=== PATIENT | female | born 1945 | race Caucasian/White ===

== ENCOUNTER 2016-11-23 18:25 | Emergency (ER) | payer MEDICARE, OTHER ==
[~2016-11-23] VITALS: Ht 167.6 cm; Wt 69.0 kg
--- NOTE | 2016-11-23 18:29 | PD ---
HPI Chief Complaint: Fall/Arm Pain Time Seen by Provider: 18:28 Travel History International Travel<30 days: No Contact w/Intl Traveler<30days: No Traveled to known affect area: No History of Present Illness HPI 70-year-old female brought in with her status post fall and a local hotel. Patient is here visiting from [place]. Patient was going to get some ice in the ice bucket when she tripped and fell landing on her left elbow. She is now complaining of pain in the left shoulder and upper arm on the left. Patient describes it as an 8/10 pain with movement. If she is holding it is a 5 out of 10. She denies hitting her head or neck pain. She denies loss of consciousness. She denies injury to any other body part. She is able to move her left elbow without difficulty she has good gopherman strength in the left hand. She is neurovascularly intact in the left hand. She has no significant medical problems she is a nonsmoker. Patient last drank a green smoothie approximately one hour prior to arrival. She has no known drug allergies. [facility] Social History Alcohol Use: No Tobacco Use: No Substance Use: No Allergies-Medications (Allergen,Severity, Reaction): Coded Allergies: No Known Allergies (Unverified , 11/23/16) Reported Meds & Prescriptions Reported Meds & Active Scripts Active No Active Prescriptions or Reported Medications Review of Systems Except as stated in HPI: all other systems reviewed are Neg General / Constitutional: No: Fever Eyes: No: Visual changes HENT: No: Headaches Cardiovascular: No: Chest Pain or Discomfort Respiratory: No: Shortness of Breath Gastrointestinal: No: Abdominal Pain Genitourinary: No: Dysuria Musculoskeletal: No: Pain Skin: No Rash Neurologic: No: Weakness Psychiatric: No: Depression Endocrine: No: Polydipsia Hematologic/Lymphatic: No: Easy Bruising Physical Exam Narrative GENERAL: Patient appears in moderate distress. SKIN: Warm and dry. Normal color. Normal turgor. No obvious abrasions, wounds , or ecchymosis. HEAD: Atraumatic. Normocephalic. EYES: Pupils equal and round. No scleral icterus. No injection or drainage. ENT: No nasal bleeding or discharge. Mucous membranes pink and moist. No dental injury. Pharynx is clear. Airway is patent. NECK: Trachea midline. No bony tenderness or step-off. Range of motion is full and supple. CARDIOVASCULAR: Regular rate and rhythm. No murmurs gallops or rubs. RESPIRATORY: No accessory muscle use. Clear to auscultation. Breath sounds equal bilaterally. GASTROINTESTINAL: Abdomen soft, non-tender, nondistended. Hepatic and splenic margins not palpable. MUSCULOSKELETAL: Extremities without clubbing, cyanosis, or edema. No obvious deformities. Patient has swelling in the left shoulder below the deltoid, with noted muscle spasm, and pain with palpation as well as any type of movement. Pain is localized to the proximal humerus. Left elbow is unremarkable. Patient has good gopherman strength in the left hand. Patient has normal neurovascular exam of the left hand and forearm. NEUROLOGICAL: Awake and alert. No obvious cranial nerve deficits. Motor grossly within normal limits. Normal speech. PSYCHIATRIC: Appropriate mood and affect; insight and judgment normal. Data Data Last Documented VS Vital Signs Date Time Temp Pulse Resp B/P Pulse Ox O2 Delivery O2 Flow Rate FiO2 11/23/16 19:47 16 97 Room Air 11/23/16 19:04 98.3 74 182/84 Orders Iv Access Insert/Monitor (11/23/16 18:42) Ecg Monitoring (11/23/16 18:42) Oximetry (11/23/16 18:42) NPO (11/23/16 18:42) Sodium Chloride 0.9% Flush (Ns Flush) (11/23/16 18:45) Electrocardiogram (11/23/16 18:42) Ice/Cold Pack (11/23/16 18:42) Humerus, One View (11/23/16 18:42) Shoulder, Limited(2vws) (11/23/16 ) Sling And Swathe (11/23/16 ) Radiology Film Requests (11/23/16 ) Acetamin-Hydrocod 325-5 Mg ([place] 5-325 (11/23/16 21:00) Iv Access - Remove (11/23/16 20:56) MDM Medical Decision Making Medical Screen Exam Complete: Yes Emergency Medical Condition: Yes Differential Diagnosis Fall. Shoulder pain. Fracture. Narrative Course Patient is medically stable at time of exam. IV access is obtained. This time patient refuses pain medication. Patient is made nothing by mouth. X-rays ordered of the left shoulder and humerus. X-ray shows comminuted fracture of the proximal humerus. 2030 hrs. call was placed to Dr. Le orthopedic on-call. 2039 hrs. call was returned by Dr. Le, and patient was discussed. Dr. Le does not feel the patient requires surgical repair. Patient is placed in a sling and swath. Patient is given 1 Lortab 5/325 by mouth. Patient will be discharged home with follow-up with orthopedic when she returns to [place]. Patient is given Lortab 5/325 one to 2 tablets every 6 hours #20. Patient is use ice frequently. Patient is to wear the sling and swath at all times until seen in follow-up in [place]. Patient may return to the emergency Department with any worsening symptoms as needed. Diagnosis Primary Impression: Closed fracture of left proximal humerus Qualified Code: S42.202A - Closed fracture of proximal end of left humerus, unspecified fracture morphology, initial encounter Referrals: Orthopedist Patient Instructions: General Instructions, How to Use a Sling (GEN), Proximal Humerus Fracture (ED) Additional Instructions: Patient is placed in a sling and swath. Patient is given 1 Lortab 5/325 by mouth. Patient will be discharged home with follow-up with orthopedic when she returns to [place]. Patient is given Lortab 5/325 one to 2 tablets every 6 hours #20. Patient is use ice frequently. Patient is to wear the sling and swath at all times until seen in follow-up in [place]. Patient may return to the emergency Department with any worsening symptoms as needed. Med/Other Pt SpecificInfo: Prescription(s) given Scripts No Active Prescriptions or Reported Meds Disposition: 01 DISCHARGE HOME Condition: Stable Gentry Tomas Nov 23, 2016 18:29
[2016-11-23] MEDS ORDERED: SODIUM CHLORIDE 0.9% FLUSH 5 ML FLUSH IVF PRN (18:45)
[2016-11-23 19:04] VITALS: BP 182/84; PULSE 74; RESP 16; TEMP 98.3; O2SAT 97
[2016-11-23 19:47] VITALS: RESP 16; O2SAT 97
--- NOTE | 2016-11-23 20:35 | PD ---
Physical Exam Narrative General: The patient is a well-developed well-nourished female in no acute distress. Head and Neck exam: Head is normocephalic atraumatic. Neck: No spinous process tenderness to palpation, no step-off, no crepitus, no erythema or ecchymosis. No palpable lymphadenopathy. No nuchal rigidity. Cardiovascular: Regular rate and rhythm without murmurs, gallops, or rubs. Lungs: Clear to auscultation bilaterally. No wheezes, rhonchi, or rales. Abdomen: Soft, without tenderness to palpation in all 4 quadrants of the abdomen. No guarding, rebound, or rigidity. Normal bowel sounds are audible Extremities: No clubbing, cyanosis, or edema. 2+ pulses in all 4 extremities. The area of interest is the left upper extremity. The patient has tenderness on palpation of the left proximal humerus. The patient has crepitus on palpation. The patient has swelling developing. The patient has no tenderness on palpation of the left elbow, left wrist, or left hand. The patient has intact sensation over all fingertips. The patient has full range of motion of the left elbow and left wrist with 5 over 5 strength. Neurologic Exam: Grossly nonfocal. Skin Exam: No rash noted. Intact skin that is warm and dry. Data Data Last Documented VS Vital Signs Date Time Temp Pulse Resp B/P Pulse Ox O2 Delivery O2 Flow Rate FiO2 11/23/16 19:47 16 97 Room Air 11/23/16 19:04 98.3 74 182/84 Orders Iv Access Insert/Monitor (11/23/16 18:42) Ecg Monitoring (11/23/16 18:42) Oximetry (11/23/16 18:42) NPO (11/23/16 18:42) Sodium Chloride 0.9% Flush (Ns Flush) (11/23/16 18:45) Electrocardiogram (11/23/16 18:42) Ice/Cold Pack (11/23/16 18:42) Humerus, One View (11/23/16 18:42) Shoulder, Limited(2vws) (11/23/16 ) Sling And Swathe (11/23/16 ) Radiology Film Requests (11/23/16 ) Acetamin-Hydrocod 325-5 Mg ([place] 5-325 (11/23/16 21:00) Iv Access - Remove (11/23/16 20:56) Sling Cradle Arm (11/23/16 ) MDM Medical Record Reviewed: Yes Supervised Visit with MARI: Yes Interpretation(s) Last Impressions Humerus X-Ray 11/23/16 1842 Signed Impressions: Service Date/Time: Wednesday, November 23, 2016 19:52 - CONCLUSION: 1. Comminuted proximal left humerus fracture. Miles Sheriff MD Shoulder X-Ray 11/23/16 0000 Signed Impressions: Service Date/Time: Wednesday, November 23, 2016 19:49 - CONCLUSION: 1. Comminuted mildly displaced fractures of the proximal left humerus Miles Sheriff MD Narrative Course I, Dr. Roca, have reviewed the advance practice practitioner's documentation and am in agreement, met with the patient face to face, made the diagnosis, and the medical decision making was done by me. The patient was initially seen by Gentry, the physician statistical assistant. Please see his complete history and physical. *My assessment and Findings: The patient is a 70-year-old female who presents to [facility] emergency Department with a history of mechanical fall prior to arrival where she landed on her left arm. She reports that she tripped over carpet and fell onto her left arm. She initially reported having left elbow and left shoulder pain. Her exam was remarkable for pain and crepitus of the left proximal humerus. A shoulder and humerus xray was ordered. The xray revealed a comminuted and displaced proximal humerus fracture. The case was discussed with the orthopedic physician by Gentry and the images were reviewed by the orthopedic physician. Ortho recommended a sling and swath with d /c home to follow up with an orthopedic physician. Diagnosis Primary Impression: Closed fracture of left proximal humerus Qualified Code: S42.202A - Closed fracture of proximal end of left humerus, unspecified fracture morphology, initial encounter Scripts Hydrocodone-Acetaminophen (Lortab)5-325 Mg Tab1-2 Tab PO Q6H PRN (PAIN) #20 TAB Prov:Janette Roca MD 11/23/16 Condition: Stable Janette Roca MD Nov 23, 2016 20:35
[2016-11-23] MEDS ORDERED: HYDR-3533 PO (21:00)
[2016-11-23] MEDS ORDERED: ACETAMINOPHEN/HYDROcodone 325 MG/5 MG TAB PO ONE (21:00)
--- NOTE | 2016-11-23 21:10 | RADRPT ---
EXAM DATE/TIME: 11/23/2016 19:49 [facility] COMPARISON: No previous studies available for comparison. INDICATIONS : Patient fell on shoulder MEDICAL HISTORY : None. SURGICAL HISTORY : None. ENCOUNTER: Initial ACUITY: 1 day PAIN SCORE: 8/10 LOCATION: Left Shoulder FINDINGS: There is a comminuted fracture of the proximal left humerus involving the neck and greater tuberosity . No dislocation. No other fractures are seen. CONCLUSION: 1. Comminuted mildly displaced fractures of the proximal left humerus Miles Sheriff MD on November 23, 2016 at 21:07 Board Certified Radiologist. This report was verified electronically.
--- NOTE | 2016-11-23 21:10 | RADRPT ---
EXAM DATE/TIME: 11/23/2016 19:52 [facility] COMPARISON: No previous studies available for comparison. INDICATIONS : Patient fell today MEDICAL HISTORY : None. SURGICAL HISTORY : None. ENCOUNTER: Initial ACUITY: 1 day PAIN SCORE: 9/10 LOCATION: Left Shoulder FINDINGS: There is a comminuted fracture of the proximal left humerus with mild displacement. No other fracture is identified. CONCLUSION: 1. Comminuted proximal left humerus fracture. Miles Sheriff MD on November 23, 2016 at 21:08 Board Certified Radiologist. This report was verified electronically.
--- NOTE | 2016-11-24 11:47 | EKG ---
Date Performed: 11/23/2016 Time Performed: 20:13:44 PTAGE: 70 years EKG: Sinus rhythm POSSIBLE LEFT ATRIAL ENLARGEMENT BORDERLINE ECG NO PREVIOUS TRACING DOCTOR: Satya Ugarte Interpretating Date/Time 11/24/2016 11:43:39
== END 2016-11-23 21:29 | disposition home or self-care (01) ==
LOC: NEPE 18:25
DX: S42.202A Unspecified fracture of upper end of left humerus, initial encounter for closed fracture (principal); R94.31 Abnormal electrocardiogram [ECG] [EKG]; W18.30XA Fall on same level, unspecified, initial encounter; Y92.59 Other trade areas as the place of occurrence of the external cause
CPT/HCPCS: 73030; 93005